=== PATIENT | female | born 1985 | race Caucasian/White ===

== ENCOUNTER 2019-01-06 09:30 | Inpatient (IN) | payer OTHER ==
[~2019-01-06 09:30] MED LIST: CEFAZOLIN 1 GM INJ; CEFAZOLIN 2 GM/50 ML (PMX) 50 ML IVPB; FENTAnyl 50 MCG/ML VIAL; MIDAZOLAM 1 MG/ML 2 ML INJ; PROPOFOL 20 ML; ROCURONIUM 50 MG INJ
[2019-01-06] MEDS ORDERED: HEPARIN 1000 UNITS/ML 10 ML INJ (10:59)
[2019-01-06] MEDS ORDERED: CA CHLORIDE 10% 10 ML SYRINGE (11:00)
[2019-01-06] MEDS: LACTATED RINGER'S 1,000 ML IV (11:01)
[2019-01-06] MEDS: D5W-0.45 NACL + KCL 20 MEQ 1,000 ML IV ×3 (12:14→22:14)
[2019-01-06] MEDS ORDERED: DIPHENHYDRAMINE 50 MG INJ IV ×2 (12:30→16:00)
[2019-01-06] MEDS ORDERED: CYCLOBENZAPRINE 10 MG TAB PO (12:30)
[2019-01-06] MEDS ORDERED: BISACODYL 10 MG SUPP PR (12:30)
[2019-01-06] MEDS ORDERED: CEPASTAT LOZENGE MT (12:30)
[2019-01-06] MEDS ORDERED: morphine 2 MG INJ IV (12:30)
[2019-01-06] MEDS: CEFAZOLIN 1 GM/50 ML (PMX) 50 ML IVPB ×2 (12:30→20:13)
[2019-01-06] MEDS ORDERED: AL HYDROX/MG HYDROX/SIMETH 30 ML CUP PO (12:30)
[2019-01-06] MEDS ORDERED: DIPHENHYDRAMINE 25 MG CAP PO (12:30)
[2019-01-06] MEDS ORDERED: NALOXONE (0.4 MG/ML) INJ IV (12:30)
[2019-01-06] MEDS ORDERED: ACETAMINOPHEN 325 MG TAB PO (12:30)
[2019-01-06] MEDS ORDERED: ONDANSETRON 4 MG INJ (13:00)
[2019-01-06] MEDS ORDERED: DEXAMETHASONE 4 MG/ML 5 ML INJ (13:00)
[2019-01-06] MEDS ORDERED: FAMOTIDINE 20 MG INJ (13:00)
[2019-01-06] MEDS: BUPIVACAINE 0.25%/EPI (SDV) 30 ML INJ (14:16)
[2019-01-06] MEDS: GELATIN SIZE 100 SPONGE (14:17)
[2019-01-06] MEDS: THROMBIN 5000 UNIT VIAL (14:17)
[2019-01-06] MEDS: POLYMYXIN/BACITRACIN 1L IRRIG (14:17)
[2019-01-06] MEDS ORDERED: SUGAMMADEX SODIUM 200 MG/2 ML VIAL IV (15:42)
[2019-01-06] MEDS ORDERED: HYDROmorphONE 1 MG/5 ML IV SYRINGE IV ×3 (16:00)
[2019-01-06] MEDS ORDERED: LABETALOL HCL 20MG INJ IV (16:00)
[2019-01-06] MEDS ORDERED: EPHEDrine 25 MG/5 ML SYG IV (16:00)
[2019-01-06] MEDS ORDERED: OXYCODONE/ACETAMINOPHEN (5/325) TAB PO ×2 (16:00)
[2019-01-06] MEDS ORDERED: FENTAnyl 50 MCG/ML VIAL IV ×3 (16:00)
[2019-01-06] MEDS ORDERED: CEFAZOLIN 1 GM INJ (16:01)
[2019-01-06] MEDS ORDERED: MEPERIDINE 100 MG INJ (16:39)
[2019-01-06] MEDS: ONDANSETRON 4 MG INJ IV (17:11)
[2019-01-06] MEDS: morphine 1 MG/ML 30 ML (PCA) IV (17:32)
[2019-01-06 19:29] LABS: ALBUMIN 3.6 g/dl (3.3-4.9)
[2019-01-06] MEDS: ALPRAZOLAM 0.25 MG TAB PO (20:12)
[2019-01-06] MEDS: DOCUSATE SODIUM 100 MG CAP PO (20:13)
[2019-01-06] MEDS: LORAZEPAM 2 MG INJ IV (21:33)
[2019-01-07] MEDS: CEFAZOLIN 1 GM/50 ML (PMX) 50 ML IVPB (04:45)
[2019-01-07] MEDS: D5W-0.45 NACL + KCL 20 MEQ 1,000 ML IV ×2 (04:46→16:08)
[2019-01-07 06:11] LABS: ADD MAN DIFF? NO
[2019-01-07 06:14] LABS: WHITE BLOOD COUNT 12.4 10^3/ul (4.8-10.8)
[2019-01-07 06:14] LABS: BASOPHILS % 0.1 % (0.0-2.0); HEMATOCRIT 33.5 % (37.0-47.0); LYMPHOCYTES # 0.9 10^3/ul (0.8-2.9); LYMPHOCYTES % 7.5 % (15.0-51.0); MEAN CORPUSCULAR HEMOGLOBIN 28.7 pg (29.0-33.0); MEAN CORPUSCULAR HGB CONC 32.8 g/dl (32.0-37.0); MEAN CORPUSCULAR VOLUME 87.5 fl (82.0-101.0); MONOCYTE # 1.1 10^3/ul (0.3-0.9); MONOCYTES % 8.6 % (0.0-11.0); NEUTROPHIL # 10.3 10^3/ul (1.6-7.5); NEUTROPHILS % 83.4 % (39.0-77.0); PLATELET COUNT 185 10^3/UL (140-415); RED BLOOD COUNT 3.83 10^6/ul (4.20-5.40); RED CELL DISTRIBUTION WIDTH 12.5 % (11.5-14.5)
[2019-01-07] MEDS: LEVOTHYROXINE 50 MCG TAB PO (06:33)
[2019-01-07 06:59] LABS: ANION GAP 7 (5-13); BLOOD UREA NITROGEN 8 mg/dl (7-20); CALCIUM 8.7 mg/dl (8.4-10.2); CARBON DIOXIDE 26 mmol/L (21-31); CHLORIDE 104 mmol/L (97-110); CREATININE 0.65 mg/dl (0.44-1.00); Estimated GFR > 60 mL/min (>60); GLUCOSE 121 mg/dl (70-220); MAGNESIUM 1.8 mg/dl (1.7-2.5); POTASSIUM 4.2 mmol/L (3.5-5.1); SODIUM 137 mmol/L (135-144)
[2019-01-07] MEDS: LORAZEPAM 2 MG INJ IV ×3 (09:22→23:47)
[2019-01-07] MEDS: morphine 1 MG/ML 30 ML (PCA) IV (12:56)
[2019-01-07] MEDS: DOCUSATE SODIUM 100 MG CAP PO ×2 (12:57→20:53)
[2019-01-07] MEDS: ALPRAZOLAM 0.25 MG TAB PO (17:35)
[2019-01-08] MEDS: D5W-0.45 NACL + KCL 20 MEQ 1,000 ML IV ×2 (03:48→14:15)
[2019-01-08 05:10] LABS: ADD MAN DIFF? NO
[2019-01-08 05:16] LABS: WHITE BLOOD COUNT 9.6 10^3/ul (4.8-10.8)
[2019-01-08 05:16] LABS: BASOPHILS % 0.2 % (0.0-2.0); EOSINOPHILS % 0.1 % (0.0-7.0); HEMOGLOBIN 11.1 g/dl (12.0-16.0); LYMPHOCYTES # 1.5 10^3/ul (0.8-2.9); LYMPHOCYTES % 15.8 % (15.0-51.0); MEAN CORPUSCULAR HEMOGLOBIN 28.8 pg (29.0-33.0); MEAN CORPUSCULAR HGB CONC 32.6 g/dl (32.0-37.0); MEAN CORPUSCULAR VOLUME 88.1 fl (82.0-101.0); MEAN PLATELET VOLUME 9.7 fl (7.4-10.4); MONOCYTES % 10.7 % (0.0-11.0); NEUTROPHILS % 72.9 % (39.0-77.0); PLATELET COUNT 188 10^3/UL (140-415); RED BLOOD COUNT 3.86 10^6/ul (4.20-5.40); RED CELL DISTRIBUTION WIDTH 12.6 % (11.5-14.5)
[2019-01-08 05:34] LABS: ANION GAP 6 (5-13); BLOOD UREA NITROGEN 2 mg/dl (7-20); CALCIUM 8.8 mg/dl (8.4-10.2); CARBON DIOXIDE 28 mmol/L (21-31); CHLORIDE 104 mmol/L (97-110); CREATININE 0.65 mg/dl (0.44-1.00); Estimated GFR > 60 mL/min (>60); GLUCOSE 103 mg/dl (70-220); MAGNESIUM 1.7 mg/dl (1.7-2.5); POTASSIUM 4.1 mmol/L (3.5-5.1); SODIUM 138 mmol/L (135-144)
[2019-01-08] MEDS: morphine 1 MG/ML 30 ML (PCA) IV (05:53)
[2019-01-08] MEDS: LEVOTHYROXINE 50 MCG TAB PO (05:58)
[2019-01-08] MEDS: LORAZEPAM 2 MG INJ IV (09:18)
[2019-01-08] MEDS ORDERED: OXYCODONE/ACETAMINOPHEN (10/325) TAB PO (10:00)
[2019-01-08] MEDS: DOCUSATE SODIUM 100 MG CAP PO (10:02)
[2019-01-08] MEDS: OXYCODONE/ACETAMINOPHEN (10/325) TAB PO ×2 (10:02→15:28)
[2019-01-08] MEDS: ONDANSETRON 4 MG INJ IV (10:06)
[2019-01-08] MEDS: ALPRAZOLAM 0.25 MG TAB PO (13:27)
== END 2019-01-08 17:15 | DRG 460 ==
LOC: REC 09:30 → MS1 17:53
PROVIDERS: Specialist
PROC: 0RG60K1 Fusion of Thoracic Vertebral Joint with Nonautologous Tissue Substitute, Posterior Approach, Posterior Column, Open Approach (ICD-10-PCS; principal; 2019-01-06 12:00)
PROC: 0RGA0K1 Fusion of Thoracolumbar Vertebral Joint with Nonautologous Tissue Substitute, Posterior Approach, Posterior Column, Open Approach (ICD-10-PCS; 2019-01-06 12:00)
PROC: 4A11X4G Monitoring of Peripheral Nervous Electrical Activity, Intraoperative, External Approach (ICD-10-PCS; 2019-01-06 12:00)
DX: T84.216A Breakdown (mechanical) of internal fixation device of vertebrae, initial encounter (principal); M96.0 Pseudarthrosis after fusion or arthrodesis; F41.9 Anxiety disorder, unspecified; E03.9 Hypothyroidism, unspecified; M43.25 Fusion of spine, thoracolumbar region; Y83.8 Other surgical procedures as the cause of abnormal reaction of the patient, or of later complication, without mention of misadventure at the time of the procedure; Y82.8 Other medical devices associated with adverse incidents; F43.10 Post-traumatic stress disorder, unspecified
CPT/HCPCS: 72072; 80048; 82040; 83735; 85025; 86999; 87086; 97116; 97162; 97530

== ENCOUNTER 2019-01-08 17:46 | Inpatient (IN) | payer OTHER ==
[2019-01-08] MEDS ORDERED: PENDING SANTYL ORDER FOR WOUND CARE XX (18:00)
[2019-01-08] MEDS ORDERED: LACTULOSE 30ML CUP PO (18:00)
[2019-01-08] MEDS ORDERED: ACETAMINOPHEN 325 MG TAB PO (18:00)
[2019-01-08 18:22] LABS: ADD UMIC NO; UR ASCORBIC ACID NEGATIVE (NEGATIVE); UR BILIRUBIN (Dip) NEGATIVE (NEGATIVE); UR BLOOD (Dip) NEGATIVE (NEGATIVE); UR CLARITY CLEAR (CLEAR); UR COLOR STRAW (YELLOW); UR GLUCOSE (Dip) NEGATIVE (NEGATIVE); UR KETONES (Dip) NEGATIVE (NEGATIVE); UR LEUKOCYTE ESTERASE (Dip) NEGATIVE Leu/ul (NEGATIVE); UR NITRITE (Dip) NEGATIVE (NEGATIVE); UR SPECIFIC GRAVITY (Dip) 1.005 (1.003-1.030); UR TOTAL PROTEIN (Dip) NEGATIVE (NEGATIVE); UR UROBILINOGEN (Dip) NEGATIVE (NEGATIVE)
[2019-01-08] MEDS ORDERED: AL HYDROX/MG HYDROX/SIMETH 30 ML CUP PO (18:30)
[2019-01-08] MEDS ORDERED: CEPASTAT LOZENGE MT (18:30)
[2019-01-08] MEDS ORDERED: DIPHENHYDRAMINE 50 MG INJ IV (18:30)
[2019-01-08] MEDS ORDERED: NALOXONE (0.4 MG/ML) INJ IV (18:30)
[2019-01-08] MEDS ORDERED: DIPHENHYDRAMINE 25 MG CAP PO (18:30)
[2019-01-08] MEDS: ONDANSETRON 4 MG INJ IV (18:37)
[2019-01-08] MEDS: LORAZEPAM 2 MG INJ IV (18:44)
[2019-01-08] MEDS: ALPRAZOLAM 0.25 MG TAB PO (21:44)
[2019-01-08] MEDS: DOCUSATE SODIUM 100 MG CAP PO (21:45)
[2019-01-08] MEDS: SENNA TAB PO (21:45)
[2019-01-09] MEDS: OXYCODONE/ACETAMINOPHEN (10/325) TAB PO ×3 (01:58→16:07)
[2019-01-09] MEDS: ONDANSETRON 4 MG INJ IV (02:01)
[2019-01-09] MEDS: LORAZEPAM 2 MG INJ IV ×2 (02:08→17:33)
[2019-01-09] MEDS: LEVOTHYROXINE 50 MCG TAB PO (06:50)
[2019-01-09 07:57] LABS: ADD MAN DIFF? NO
[2019-01-09 08:00] LABS: WHITE BLOOD COUNT 8.9 10^3/ul (4.8-10.8)
[2019-01-09 08:00] LABS: BASOPHILS % 0.5 % (0.0-2.0); EOSINOPHILS # 0.1 10^3/ul (0.0-0.5); EOSINOPHILS % 0.8 % (0.0-7.0); HEMATOCRIT 40.5 % (37.0-47.0); HEMOGLOBIN 13.4 g/dl (12.0-16.0); LYMPHOCYTES # 2.2 10^3/ul (0.8-2.9); LYMPHOCYTES % 24.8 % (15.0-51.0); MEAN CORPUSCULAR HEMOGLOBIN 28.4 pg (29.0-33.0); MEAN CORPUSCULAR HGB CONC 33.1 g/dl (32.0-37.0); MEAN CORPUSCULAR VOLUME 85.8 fl (82.0-101.0); MEAN PLATELET VOLUME 9.8 fl (7.4-10.4); MONOCYTE # 0.9 10^3/ul (0.3-0.9); MONOCYTES % 10.4 % (0.0-11.0); NEUTROPHIL # 5.6 10^3/ul (1.6-7.5); PLATELET COUNT 219 10^3/UL (140-415); RED BLOOD COUNT 4.72 10^6/ul (4.20-5.40); RED CELL DISTRIBUTION WIDTH 12.5 % (11.5-14.5)
[2019-01-09] MEDS ORDERED: ACETAMINOPHEN 325 MG TAB PO (08:00)
[2019-01-09 08:32] LABS: ALANINE AMINOTRANSFERASE 22 IU/L (13-69); ALBUMIN 3.8 g/dl (3.3-4.9); ALBUMIN/GLOBULIN RATIO 1.22; ALKALINE PHOSPHATASE 45 IU/L (42-121); ANION GAP 7 (5-13); ASPARTATE AMINO TRANSFERASE 52 IU/L (15-46); BILIRUBIN,INDIRECT 0.9 mg/dl (0-1.1); BILIRUBIN,TOTAL 0.9 mg/dl (0.2-1.3); BLOOD UREA NITROGEN 8 mg/dl (7-20); CARBON DIOXIDE 28 mmol/L (21-31); CHLORIDE 101 mmol/L (97-110); CREATININE 0.78 mg/dl (0.44-1.00); Estimated GFR > 60 mL/min (>60); GLUCOSE 84 mg/dl (70-220); POTASSIUM 4.2 mmol/L (3.5-5.1); SODIUM 136 mmol/L (135-144); TOTAL PROTEIN 6.9 g/dl (6.1-8.1)
[2019-01-09] MEDS: DOCUSATE SODIUM 100 MG CAP PO ×2 (08:39→19:57)
[2019-01-09] MEDS: ALPRAZOLAM 0.25 MG TAB PO ×2 (09:35→19:57)
[2019-01-09] MEDS: SENNA TAB PO (19:59)
[2019-01-10] MEDS: LORAZEPAM 2 MG INJ IV ×3 (01:55→20:45)
[2019-01-10] MEDS: LEVOTHYROXINE 50 MCG TAB PO (06:21)
[2019-01-10] MEDS: LACTULOSE 30ML CUP PO (09:00)
[2019-01-10] MEDS: ALPRAZOLAM 0.25 MG TAB PO (09:17)
[2019-01-10] MEDS: POLYETHYLENE GLYCOL 17 GM PACKET PO (09:17)
[2019-01-10] MEDS: DOCUSATE SODIUM 100 MG CAP PO ×2 (09:18→20:47)
[2019-01-10] MEDS: DEXTROSE 5%-0.9% NACL 1,000 ML IV (12:00)
[2019-01-10] MEDS: OXYCODONE/ACETAMINOPHEN (10/325) TAB PO ×2 (13:38→23:16)
[2019-01-10 20:46] LABS: LIPASE 41 U/L (23-300)
[2019-01-10 20:46] LABS: AMYLASE 42 U/L (11-123)
[2019-01-11] MEDS: LEVOTHYROXINE 50 MCG TAB PO (06:48)
[2019-01-11 07:13] LABS: ADD MAN DIFF? NO
[2019-01-11 07:17] LABS: BASOPHILS % 0.6 % (0.0-2.0); EOSINOPHILS # 0.2 10^3/ul (0.0-0.5); EOSINOPHILS % 2.6 % (0.0-7.0); HEMATOCRIT 39.3 % (37.0-47.0); HEMOGLOBIN 13.4 g/dl (12.0-16.0); LYMPHOCYTES # 2.8 10^3/ul (0.8-2.9); LYMPHOCYTES % 40.1 % (15.0-51.0); MEAN CORPUSCULAR HEMOGLOBIN 28.5 pg (29.0-33.0); MEAN CORPUSCULAR HGB CONC 34.1 g/dl (32.0-37.0); MEAN CORPUSCULAR VOLUME 83.6 fl (82.0-101.0); MEAN PLATELET VOLUME 9.6 fl (7.4-10.4); MONOCYTE # 0.6 10^3/ul (0.3-0.9); MONOCYTES % 8.3 % (0.0-11.0); NEUTROPHIL # 3.4 10^3/ul (1.6-7.5); NEUTROPHILS % 48.1 % (39.0-77.0); PLATELET COUNT 267 10^3/UL (140-415); RED CELL DISTRIBUTION WIDTH 12.4 % (11.5-14.5)
[2019-01-11] MEDS ORDERED: IOHEXOL 14.3 MG(I)/ML (ADULT) BTL PO (07:30)
[2019-01-11 07:38] LABS: ANION GAP 8 (5-13); BLOOD UREA NITROGEN 13 mg/dl (7-20); CALCIUM 8.9 mg/dl (8.4-10.2); CARBON DIOXIDE 31 mmol/L (21-31); CHLORIDE 98 mmol/L (97-110); CREATININE 0.76 mg/dl (0.44-1.00); Estimated GFR > 60 mL/min (>60); GLUCOSE 87 mg/dl (70-220); MAGNESIUM 2.1 mg/dl (1.7-2.5); PHOSPHORUS 4.4 mg/dl (2.5-4.9); POTASSIUM 3.9 mmol/L (3.5-5.1); SODIUM 137 mmol/L (135-144)
[2019-01-11] MEDS: DEXTROSE 5%-0.9% NACL 1,000 ML IV (08:00)
[2019-01-11] MEDS: LORAZEPAM 2 MG INJ IV ×2 (08:03→17:39)
[2019-01-11] MEDS: POLYETHYLENE GLYCOL 17 GM PACKET PO (09:49)
[2019-01-11] MEDS: DOCUSATE SODIUM 100 MG CAP PO ×2 (09:50→20:58)
[2019-01-11] MEDS: LACTULOSE 30ML CUP PO (09:50)
[2019-01-11] MEDS: OXYCODONE/ACETAMINOPHEN (10/325) TAB PO ×2 (09:51→20:58)
[2019-01-11] MEDS: BISACODYL 10 MG SUPP PR (09:54)
[2019-01-11] MEDS: ONDANSETRON 4 MG INJ IV (13:01)
[2019-01-12] MEDS: DEXTROSE 5%-0.9% NACL 1,000 ML IV (04:00)
[2019-01-12] MEDS: LORAZEPAM 2 MG INJ IV ×2 (06:05→16:38)
[2019-01-12] MEDS: OXYCODONE/ACETAMINOPHEN (10/325) TAB PO ×3 (06:05→20:30)
[2019-01-12] MEDS: LEVOTHYROXINE 50 MCG TAB PO (06:05)
[2019-01-12] MEDS: DOCUSATE SODIUM 100 MG CAP PO ×2 (08:33→20:30)
[2019-01-12] MEDS: HYDROmorphONE 0.5 MG/0.5 ML SYG IV ×3 (08:35→17:27)
[2019-01-12] MEDS: POLYETHYLENE GLYCOL 17 GM PACKET PO (09:00)
[2019-01-12] MEDS: LACTULOSE 30ML CUP PO (09:00)
[2019-01-12] MEDS: SENNA TAB PO (10:00)
[2019-01-12] MEDS: DRONABINOL 2.5 MG CAP PO ×2 (13:36→20:30)
[2019-01-12] MEDS: IOHEXOL 14.3 MG(I)/ML (ADULT) BTL PO (13:37)
[2019-01-13] MEDS: DEXTROSE 5%-0.9% NACL 1,000 ML IV
[2019-01-13] MEDS: LORAZEPAM 2 MG INJ IV (00:35)
[2019-01-13] MEDS: LEVOTHYROXINE 50 MCG TAB PO (06:23)
[2019-01-13] MEDS: DOCUSATE SODIUM 100 MG CAP PO ×2 (09:00→21:03)
[2019-01-13] MEDS ORDERED: LORAZEPAM 1 MG TAB PO (09:00)
[2019-01-13] MEDS: LACTULOSE 30ML CUP PO (09:00)
[2019-01-13] MEDS: SENNA TAB PO (09:00)
[2019-01-13] MEDS: POLYETHYLENE GLYCOL 17 GM PACKET PO (09:00)
[2019-01-13 09:14] LABS: ADD MAN DIFF? NO
[2019-01-13 09:18] LABS: WHITE BLOOD COUNT 7.2 10^3/ul (4.8-10.8)
[2019-01-13 09:18] LABS: BASOPHILS % 0.6 % (0.0-2.0); EOSINOPHILS # 0.2 10^3/ul (0.0-0.5); EOSINOPHILS % 2.2 % (0.0-7.0); HEMATOCRIT 34.1 % (37.0-47.0); HEMOGLOBIN 11.6 g/dl (12.0-16.0); LYMPHOCYTES # 1.5 10^3/ul (0.8-2.9); LYMPHOCYTES % 21.3 % (15.0-51.0); MEAN CORPUSCULAR HEMOGLOBIN 28.8 pg (29.0-33.0); MEAN CORPUSCULAR VOLUME 84.6 fl (82.0-101.0); MEAN PLATELET VOLUME 9.7 fl (7.4-10.4); MONOCYTE # 0.5 10^3/ul (0.3-0.9); NEUTROPHIL # 4.9 10^3/ul (1.6-7.5); NEUTROPHILS % 68.8 % (39.0-77.0); PLATELET COUNT 263 10^3/UL (140-415); RED BLOOD COUNT 4.03 10^6/ul (4.20-5.40); RED CELL DISTRIBUTION WIDTH 12.3 % (11.5-14.5)
[2019-01-13] MEDS: OXYCODONE/ACETAMINOPHEN (10/325) TAB PO ×2 (09:44→21:04)
[2019-01-13 09:45] LABS: ALANINE AMINOTRANSFERASE 20 IU/L (13-69); ALBUMIN 3.6 g/dl (3.3-4.9); ALBUMIN/GLOBULIN RATIO 1.24; ALKALINE PHOSPHATASE 51 IU/L (42-121); ANION GAP 9 (5-13); ASPARTATE AMINO TRANSFERASE 30 IU/L (15-46); BILIRUBIN,INDIRECT 0.6 mg/dl (0-1.1); BILIRUBIN,TOTAL 0.6 mg/dl (0.2-1.3); BLOOD UREA NITROGEN 9 mg/dl (7-20); CALCIUM 8.8 mg/dl (8.4-10.2); CARBON DIOXIDE 25 mmol/L (21-31); CHLORIDE 103 mmol/L (97-110); CREATININE 0.65 mg/dl (0.44-1.00); Estimated GFR > 60 mL/min (>60); GLUCOSE 98 mg/dl (70-220); POTASSIUM 3.7 mmol/L (3.5-5.1); SODIUM 137 mmol/L (135-144); TOTAL PROTEIN 6.5 g/dl (6.1-8.1)
[2019-01-13] MEDS: MAGNESIUM HYDROXIDE 30ML CUP PO (21:03)
[2019-01-13] MEDS ORDERED: LORAZEPAM 0.5 MG TAB (21:43)
[2019-01-13] MEDS: LORAZEPAM 0.5 MG TAB PO (22:02)
[2019-01-13] MEDS: LEVOTHYROXINE 25 MCG TAB PO (22:05)
[2019-01-14] MEDS: LEVOTHYROXINE 25 MCG TAB PO (06:06)
[2019-01-14] MEDS: OXYCODONE/ACETAMINOPHEN (10/325) TAB PO ×2 (08:06→20:06)
[2019-01-14] MEDS: SENNA TAB PO (08:07)
[2019-01-14] MEDS: LORAZEPAM 0.5 MG TAB PO ×2 (08:07→21:53)
[2019-01-14] MEDS: DOCUSATE SODIUM 100 MG CAP PO ×2 (08:07→20:06)
[2019-01-14] MEDS: HYDROmorphONE 0.5 MG/0.5 ML SYG IV ×2 (08:13→11:13)
[2019-01-14] MEDS: POLYETHYLENE GLYCOL 17 GM PACKET PO (09:00)
[2019-01-14] MEDS: LACTULOSE 30ML CUP PO (09:00)
[2019-01-15] MEDS: LEVOTHYROXINE 25 MCG TAB PO (06:30)
[2019-01-15] MEDS: LORAZEPAM 0.5 MG TAB PO ×3 (07:52→22:59)
[2019-01-15] MEDS: POLYETHYLENE GLYCOL 17 GM PACKET PO (09:00)
[2019-01-15] MEDS: LACTULOSE 30ML CUP PO (09:00)
[2019-01-15] MEDS: DOCUSATE SODIUM 100 MG CAP PO ×2 (09:09→21:00)
[2019-01-15] MEDS: SENNA TAB PO (09:09)
[2019-01-15] MEDS: OXYCODONE/ACETAMINOPHEN (10/325) TAB PO ×3 (09:10→22:06)
[2019-01-15] MEDS: clonAZEPAM 0.5 MG TAB PO (20:30)
[2019-01-15] MEDS ORDERED: HALOPERIDOL 5 MG INJ IM (22:30)
[2019-01-16] MEDS: LEVOTHYROXINE 25 MCG TAB PO (06:55)
[2019-01-16] MEDS: clonAZEPAM 0.5 MG TAB PO (08:35)
[2019-01-16] MEDS: OXYCODONE/ACETAMINOPHEN (10/325) TAB PO ×2 (08:35→14:58)
[2019-01-16] MEDS: SENNA TAB PO (08:35)
[2019-01-16] MEDS: DOCUSATE SODIUM 100 MG CAP PO ×2 (08:35→21:00)
[2019-01-16] MEDS: POLYETHYLENE GLYCOL 17 GM PACKET PO (08:35)
[2019-01-16] MEDS: LACTULOSE 30ML CUP PO ×2 (08:35→08:38)
[2019-01-16] MEDS ORDERED: POLYETHYLENE GLYCOL 17 GM PACKET PO (10:00)
[2019-01-16] MEDS ORDERED: LACTULOSE 30ML CUP PO (10:00)
[2019-01-16] MEDS: ALPRAZOLAM 0.25 MG TAB PO (18:29)
[2019-01-16] MEDS ORDERED: LORAZEPAM 2 MG INJ IM (23:00)
[2019-01-16] MEDS ORDERED: HALOPERIDOL 5 MG INJ IM (23:00)
[2019-01-17] MEDS ORDERED: LORAZEPAM 1 MG TAB PO
[2019-01-17] MEDS: OXYCODONE/ACETAMINOPHEN (10/325) TAB PO ×2 (00:12→16:22)
[2019-01-17] MEDS: LEVOTHYROXINE 25 MCG TAB PO (06:47)
[2019-01-17] MEDS: clonAZEPAM 0.5 MG TAB PO (06:50)
[2019-01-17 06:51] LABS: ADD MAN DIFF? NO
[2019-01-17 06:56] LABS: WHITE BLOOD COUNT 6.3 10^3/ul (4.8-10.8)
[2019-01-17 06:56] LABS: BASOPHIL # 0.1 10^3/ul (0.0-0.1); BASOPHILS % 0.8 % (0.0-2.0); EOSINOPHILS # 0.3 10^3/ul (0.0-0.5); EOSINOPHILS % 4.3 % (0.0-7.0); HEMATOCRIT 37.8 % (37.0-47.0); HEMOGLOBIN 12.6 g/dl (12.0-16.0); LYMPHOCYTES # 2.7 10^3/ul (0.8-2.9); LYMPHOCYTES % 43.4 % (15.0-51.0); MEAN CORPUSCULAR HEMOGLOBIN 28.3 pg (29.0-33.0); MEAN CORPUSCULAR HGB CONC 33.3 g/dl (32.0-37.0); MEAN CORPUSCULAR VOLUME 84.8 fl (82.0-101.0); MEAN PLATELET VOLUME 9.2 fl (7.4-10.4); MONOCYTE # 0.6 10^3/ul (0.3-0.9); MONOCYTES % 8.9 % (0.0-11.0); NEUTROPHIL # 2.7 10^3/ul (1.6-7.5); NEUTROPHILS % 42.3 % (39.0-77.0); PLATELET COUNT 397 10^3/UL (140-415); RED BLOOD COUNT 4.46 10^6/ul (4.20-5.40); RED CELL DISTRIBUTION WIDTH 12.9 % (11.5-14.5)
[2019-01-17 07:17] LABS: ANION GAP 11 (5-13); BLOOD UREA NITROGEN 16 mg/dl (7-20); CALCIUM 9.7 mg/dl (8.4-10.2); CARBON DIOXIDE 28 mmol/L (21-31); CHLORIDE 104 mmol/L (97-110); CREATININE 0.88 mg/dl (0.44-1.00); Estimated GFR > 60 mL/min (>60); GLUCOSE 86 mg/dl (70-220); MAGNESIUM 2.3 mg/dl (1.7-2.5); PHOSPHORUS 5.5 mg/dl (2.5-4.9); POTASSIUM 4.4 mmol/L (3.5-5.1); SODIUM 143 mmol/L (135-144)
[2019-01-17] MEDS: SENNA TAB PO (08:51)
[2019-01-17] MEDS: DOCUSATE SODIUM 100 MG CAP PO (08:51)
[2019-01-17] MEDS: ALPRAZOLAM 0.25 MG TAB PO (15:47)
== END 2019-01-17 16:35 | disposition home health service (06) | DRG 560 ==
LOC: VRC 01-10 14:05
PROC: F07Z5ZZ Bed Mobility Treatment (ICD-10-PCS; principal; 2019-01-08)
PROC: F08Z2ZZ Grooming/Personal Hygiene Treatment (ICD-10-PCS; 2019-01-08)
DX: Z47.82 Encounter for orthopedic aftercare following scoliosis surgery (principal); Q87.40 Marfan syndrome, unspecified; Z68.1 Body mass index [BMI] 19.9 or less, adult; G89.18 Other acute postprocedural pain; Z98.890 Other specified postprocedural states; F43.10 Post-traumatic stress disorder, unspecified; E03.9 Hypothyroidism, unspecified; K59.00 Constipation, unspecified; F41.9 Anxiety disorder, unspecified; F32.9 Major depressive disorder, single episode, unspecified; F39 Unspecified mood [affective] disorder; F50.9 Eating disorder, unspecified
CPT/HCPCS: 72072; 72100; 74018; 80048; 80053; 81003; 82150; 82306; 83690; 83735; 84100; 84443; 84703; 85025; 87081; 87086; 97110; 97112; 97116; 97162; 97166; 97530; 97535